=== PATIENT | female | born 1960 | race African-American/Black ===

== ENCOUNTER 2020-01-27 13:27 | Emergency (ER) | payer OTHER ==
[~2020-01-27] VITALS: Ht 157.5 cm; Wt 74.4 kg
[2020-01-27 14:52] LABS: ABSOLUTE NEUTROPHILS 2.4 thou/uL (1.4-8.2); BASOPHILS 0.6 % (0.0-2.0); EOSINOPHILS 2.7 % (0.0-3.0); HEMOGLOBIN 13.2 gm/dL (12.0-15.0); LYMPHOCYTES 53.1 % (24.0-44.0); MCH 31.7 pg (26.0-34.0); MONOCYTES 7.9 % (1.0-8.0); PLATELET COUNT 264 thou/uL (150-400); POLYS 35.7 % (36.0-66.0); RBC 4.17 mil/uL (4.20-5.00); RDW 13.9 % (10.5-14.5); WBC 6.7 thou/uL (4.0-11.0)
[2020-01-27 15:08] LABS: CALCIUM 9.6 mg/dL (8.5-10.1); CREATININE 0.8 mg/dL (0.6-1.0); POTASSIUM 4.1 mmol/L (3.5-5.1)
[2020-01-27 17:12] VITALS: BP 148/93
--- NOTE | 2020-01-28 08:12 | EKG ---
[facility] [place] [address] ELECTROCARDIOGRAM REPORT Name: DIYA MERCHANT Room #: DEP [facility]#: [id number] Admission: 01/27/20 Attend Phys: Discharge: 01/27/20 Date of : 60 Report #: [id number] THIS REPORT FOR: cc: JARETH SHERIFF MD, RADHIKA MD Couchonnal,Germain Roberts MD ~ THIS REPORT FOR: //name// [facility] ED Test Date: 2020-01-27 Test Time: 14:03:33 Pat Name: DIYA MERCHANT Department: Room: Gender: Senior Solutions Engineer: [facility] : 1960 Requested By: Meek Bustillos Order Number: [id number] MD: Germain Cortez Measurements Intervals [place] Rate: 66 P: -15 [place]: 185 QRS: -5 QRSD: 84 T: 14 QT: 417 QTc: 437 Interpretive Statements Sinus rhythm Abnormal R-wave progression, early transition No previous ECG available for comparison Electronically Signed On 01-28-2020 8:12:32 CDT by Germain Cortez [email or web address] <ELECTRONICALLY SIGNED> By: Germain Cortez MD 01/28/20811 02 02 Germain Cortez MD /FRANCISCO
== END 2020-01-27 17:12 | disposition home or self-care (01) ==
LOC: ER 13:27
PROVIDERS: Emergency Medicine
DX: S16.1XXA Strain of muscle, fascia and tendon at neck level, initial encounter (principal); R51 Headache; M25.512 Pain in left shoulder; V89.2XXA Person injured in unspecified motor-vehicle accident, traffic, initial encounter; Y93.I9 Activity, other involving external motion; Y92.481 Parking lot as the place of occurrence of the external cause; Y99.8 Other external cause status